=== PATIENT | male | born 1990 | race Caucasian/White ===

== ENCOUNTER 2023-03-31 17:05 | Emergency (ER) | payer MEDICAID ==
[~2023-03-31] VITALS: Ht 165.1 cm; Wt 64.0 kg
[2023-03-31 17:12] VITALS: BP 121/74; PULSE 76; RESP 20; TEMP 98.1; O2SAT 99
[2023-03-31] MEDS ORDERED: BACITRACIN ZINC OINT UDPKT TOP ONE (17:30)
[2023-03-31] MEDS ORDERED: LIDOCAINE HCL/PF 1% 10 MG/ML 5ML VIAL INFIL ONE (17:30)
[2023-03-31] MEDS ORDERED: CEPHALEXIN 250MG CAPSULE PO ONE (18:00)
[2023-03-31] MEDS ORDERED: TETANUS, DIPHTHERIA, PERTUSSIS VAC/PF 0.5ML (>10YR OLD) IM ONE (18:00)
[2023-03-31] MEDS ORDERED: HYDROCODONE/ACETAMINOPHEN 5/325MG TABLET PO ONE (18:00)
[2023-03-31] MEDS ORDERED: CEPH500C2 MT (18:23)
[2023-03-31] MEDS ORDERED: IBUP-2029 MT (18:23)
== END 2023-03-31 19:33 | disposition home or self-care (01) ==
LOC: ER 17:19
DX: S61.411A Laceration without foreign body of right hand, initial encounter (principal); W26.8XXA Contact with other sharp object(s), not elsewhere classified, initial encounter; Y93.89 Activity, other specified; Y92.89 Other specified places as the place of occurrence of the external cause; Y99.8 Other external cause status
CPT/HCPCS: 99284; 73130; 90715; 12002; 90471; J3490